=== PATIENT | female | born 1990 | race African-American/Black ===

== ENCOUNTER 2020-08-17 13:07 | Inpatient (IN) | payer BC ==
[2020-08-17] MEDS ORDERED: LACTATED RINGERS 500 ML IV ONE (13:32)
[2020-08-17] MEDS ORDERED: TERBUTALINE 1 MG/1 ML INJ SUB-Q SCH (14:00)
[2020-08-17] MEDS ORDERED: metroNIDAZOLE 500 MG TAB PO ONE (14:32)
--- NOTE | 2020-08-17 14:52 | History and Physical Report ---
History of Present Illness Date of examination: 08/17/20 Chief complaint: vaginal spotting and discharge, contractions History of present illness: 30yo G1 at 28.0 weeks, IGOR 11/09/20, with vaginal bleeding and contractions. Noted to be 3cm dilated in OB triage. PNC at [facility] scanned into chart. OB US completed in triage, no placental pathology, cervical length 4cm, awaiting final report labs significant for 1 hour [id number] Past History - Obstetrical History Expected Date of Delivery: 11/09/20 Actual Gestation: 28 Week(s) 0 Day(s) : 1 Medications and Allergies Allergies Allergy/AdvReac Type Severity Reaction Status Date / Time No Known Allergies Allergy Verified 08/17/20 13:17 Active Meds: Active Medications Lactated Ringer's (Lactated Ringers) 1,000 mls @ 125 mls/hr IV DIRECT TRESSA Terbutaline Sulfate (Terbutaline 1 Mg/1 Ml Inj) 0.25 mg SUB-Q Q20MIN TRESSA Stop: 08/19/20 14:01 Review of Systems All systems: negative (see HPI) - Vital Signs Vital signs: Vital Signs Pulse Pulse Ox 93 H 99 08/17/20 13:24 08/17/20 13:24 Temp Pulse Resp BP Pulse Ox 98.2 F 83 113/65 99 08/17/20 13:47 08/17/20 14:47 08/17/20 13:25 08/17/20 14:47 - Physical Exam Breasts: Positive: deferred Cardiovascular: Regular rate Lungs: Positive: Clear to auscultation Abdomen: Positive: normal appearance, normal bowel sounds Genitourinary (Female): Positive: normal external genitalia, normal perenium Cervix: Positive: other (3cm) Uterus: Positive: other (FH 28cm) Anus/Rectum: Positive: normal perianal skin Extremities: Positive: normal Deep Tendon Reflex Grade: Normal +2 - Obstetrical FHR: category 1 (appropriate and reassuring for gestatonal age) Uterine Contraction Monitor Mode: External Cervical Dilatation: 3 Results Result Diagrams: 08/17/20 Unknown All other labs normal. Assessment and Plan Labor Gestational DM Plan: admission MGSO4 Steroids Accuchecks fasting and QAC/HS SSI if needed diabetic diet CFM Bedrest delivery for maternal/ indication Eusebio Porter MD
[2020-08-17 15:06] LABS: Bacteria,Urine 1+ /HPF (Negative); Basophils % (Auto) 0.2 % (0.0-1.8); Bilirubin,Urine NEG (Negative); Blood,Urine NEG (Negative); Color,Urine Straw (Yellow); Eosinophils # (Auto) 0.1 K/mm3 (0.0-0.4); Eosinophils % (Auto) 0.8 % (0.0-4.3); Hematocrit 38.7 % (30.3-42.9); Hemoglobin 13.1 gm/dl (10.1-14.3); Lymphocytes # (Auto) 2.5 K/mm3 (1.2-5.4); Lymphocytes % (Auto) 15.7 % (13.4-35.0); Mean Corpuscular HGB Conc 34 % (30-34); Mean Corpuscular Volume 82 fl (79-97); Monocytes % (Auto) 6.1 % (0.0-7.3); Platelet Count 306 K/mm3 (140-440); Protein,Urine <15 mg/dL mg/dL (Negative); RBC,Urine < 1.0 /HPF (0.0-6.0); Red Blood Count 4.74 M/mm3 (3.65-5.03); Red Cell Distribution Width 14.8 % (13.2-15.2); Urobilinogen,Urine < 2.0 mg/dL (<2.0); WBC,Urine < 1.0 /HPF (0.0-6.0)
[2020-08-17] MEDS ORDERED: MAGNESIUM SULFATE 4 GM/100 ML BAG IV ONE (15:56)
[2020-08-17] MEDS ORDERED: LACTATED RINGERS 1,000 ML IV SCH (16:00)
--- NOTE | 2020-08-17 16:12 | Consultation ---
History of Present Illness Consult date: 08/17/20 Requesting physician: MINO NICOLE History of present illness: HPI Ms. Mims is a 30 y/o female from [place] - IGOR 11/09/20 - EGA at 28 0/7 weeks Presented with vag bleeding and contractions " tightenings" Bleeding started 2 days ago and increased today Now feeling better Denies complications Recent Screen for GDM Positive Vag exam 3cm / 50% US vtx Grade 1 placenta Anterior verbal from nurse - EFW/BPP pending No med ds, surg, STD, C/D/D NKA PNV's Lab H/H Plts - 306 WBC - 15.9 Afeb VSS 119/66 , pulse 89 ABd soft NT no rebound no guarding Back no CVA Ext nt no edema Past History - Obstetrical History : 1 Medications and Allergies Allergies Allergy/AdvReac Type Severity Reaction Status Date / Time No Known Allergies Allergy Verified 08/17/20 13:17 Active Meds: Active Medications Betamethasone Acet/Betameth SodPhos (Betamet Acet/Betamet Na Ph 6 Mg/Ml Inj 5 Ml Mdv) 12 mg IM Q24H TRESSA Stop: 08/18/20 16:01 Last Admin: 08/17/20 15:32 Dose: 12 mg Documented by: Lactated Ringer's (Lactated Ringers) 1,000 mls @ 125 mls/hr IV DIRECT TRESSA Lactated Ringer's (Lactated Ringers) 1,000 mls @ 125 mls/hr IV DIRECT TRESSA Magnesium Sulfate (Magnesium Sulfate 40gm/1000ml) 40 gm in 1,000 mls @ 50 mls/hr IV DIRECT TRESSA Magnesium Sulfate (Magnesium Sulfate 4gm/100ml) 4 gm in 100 mls @ 300 mls/hr IV ONCE ONE Stop: 08/17/20 16:15 Last Admin: 08/17/20 15:35 Dose: 300 mls/hr Documented by: Ampicillin Sodium (Ampicillin/Ns 2 Gm/100 Ml) 2 gm in 100 mls @ 100 mls/hr IV ONCE ONE; Protocol Stop: 08/17/20 17:37 Ampicillin Sodium (Ampicillin/Ns 1 Gm/50 Ml) 1 gm in 50 mls @ 100 mls/hr IV Q4H TRESSA; Protocol Insulin Human Regular (Insulin Regular, Human 100 Units/1 Ml) 0 units SUB-Q ACHS TRESSA; Protocol Terbutaline Sulfate (Terbutaline 1 Mg/1 Ml Inj) 0.25 mg SUB-Q Q20MIN TRESSA Stop: 08/19/20 14:01 - Vital Signs Vital signs: Vital Signs Pulse Pulse Ox 93 H 99 08/17/20 13:24 08/17/20 13:24 Temp Pulse Resp BP Pulse Ox 98.2 F 98 H 20 119/66 100 08/17/20 15:52 08/17/20 16:10 08/17/20 15:52 08/17/20 16:10 08/17/20 15:52 Results Result Diagrams: 08/17/20 Unknown Abnormal lab results 08/17/20 Range/Units Unknown WBC 15.9 H (4.5-11.0) K/mm3 Norman # (Auto) 1.0 H (0.0-0.8) K/mm3 Seg Neutrophils % 77.2 H (40.0-70.0) % Seg Neutrophils # 12.3 H (1.8-7.7) K/mm3 All other labs normal. Assessment and Plan Assess 1. [place] IUP at 28 0/7 weeks 2. PTL 3. Vag bleeding 4. GDM - recent diag Recs: 1. Steroids for FLM 2. Obtain Cx's GC Chl GBS if not done 3. Mg X 24 Hour for neuroprophylaxis 4. Hydration 5. US for EFW and BPP 6. NICU consult 7. Drug screen and HbA1c 8. ADA diet 2200 9. Accuchecks fastings and 2 hour PP's 10. If no further changes in cervix - and labs and status ( US EFW EFM BPP ) normal possible will assess hospital management verse home
[2020-08-17] MEDS: MAGNESIUM SULFATE 40GM/1000ML 40 GM/1,000 ML BAG IV SCH (16:13)
[2020-08-17] MEDS: BETAMET ACET/BETAMET NA PH 6 MG/ML INJ 5 ML MDV IM SCH (16:32)
[2020-08-17] MEDS ORDERED: AMPICILLIN/NS 2 GM/100 ML 2 GM/100 ML BAG IV ONE (16:38)
[2020-08-17 18:02] LABS: Amphetamine Screen,Urine Negative; Benzodiazepines Screen,Urine Negative; Cannabinoid Screen,Urine Negative; Cocaine Screen,Urine Negative; Methadone Screen,Urine Negative; Opiate Screen,Urine Negative
--- NOTE | 2020-08-17 19:04 | Ultrasound Report ---
ULTRASOUND OBSTETRIC LIMITED ULTRASOUND BIOPHYSICAL PROFILE INDICATION / CLINICAL INFORMATION: labor. COMPARISON: None available. FINDINGS: BREATHING MOVEMENT = 2 GROSS BODY MOVEMENT = 2 TONE = 2 QUALITATIVE AMNIOTIC FLUID VOLUME = 2 TOTAL BIOPHYSICAL SCORE = 8/8 AMNIOTIC FLUID INDEX (cm) = 13.0 PRESENTATION: Breech. HEART RATE (beats per minute): 164 ADDITIONAL FINDINGS: By ultrasound measurements, the estimated gestational age is 29 weeks 1 day. IMPRESSION: 1. Biophysical Score = 8/8 2. No significant sonographic abnormality. Signer Name: Refugio Bynum MD Signed: 08/17/2020 7:00 PM Workstation Name: [email or web address]
--- NOTE | 2020-08-17 20:01 | Consultation ---
Consult Note - Parent Education I met with parent(s) and discussed the following:: Need for NICU admission, Poss ible need for intubation and surfactant or other resp support, Temperature regulation, Head ultrasounds to evaluate IVH, Eye exams for ROP screening, Possible need for IV fluids/TPN and IV antibiotics, Possible need for umbilical lines, Importance of providing breast milk & encouraged pumping aft delivery, Donor breast milk if baby meets criteria after , Slow feeding advancement and monitoring of tolerance. NG/OG feeds, Need to monitor for jaundice, Data for survival & survival without significant co-morbidities Parent(s) demonstrated understanding of all the information:: Yes Assessment and Plan - Assessment Gestation:: 28 Baby's gender: Male Additional Comment: Ms. Mims is a 30 yo G1 who was admitted at 28 weeks gestation w/IGOR of 11/09/2020 for uterine contractions with vaginal bleeding that worsened today. On her admission, she was 3 cm dilated. Her 1 hour GTT showed a glucose of 244mg/dl and her HgbA1C is 6.4% on her admission today. Her PNR noted an episode of tachycardia with her dating US. Her serologies are negative. Her ultrasound on admission here showed the fetus is in the breech position. She has been started on betamethasone, magnesium sulfate, ampicillin, and flagyl. - Plan Plan: Agree with Mag & steroids Will attend delivery Please call NICU with questions
[2020-08-17] MEDS: INSULIN REGULAR, HUMAN 100 UNITS/1 ML SUB-Q SCH (20:21)
[2020-08-17] MEDS: AMPICILLIN/NS 1 GM/50 ML 1 GM/50 ML BAG IV SCH (21:30)
[2020-08-18] MEDS: AMPICILLIN/NS 1 GM/50 ML 1 GM/50 ML BAG IV SCH ×2 (01:45→05:56)
[2020-08-18] MEDS: LACTATED RINGERS 1,000 ML IV SCH ×2 (01:46→15:32)
[2020-08-18] MEDS: INSULIN REGULAR, HUMAN 100 UNITS/1 ML SUB-Q SCH ×5 (01:47→21:21)
--- NOTE | 2020-08-18 10:20 | Progress Note ---
Assessment and Plan Labor GDM Plan: Appreciate APA consult complete steroids monitor overnight and re-evaluate in AM if stable may d/c to home tomorrow Eusebio Porter MD Subjective - Subjective Date of service: 08/18/20 Interval history: 30yo G1 at 28.1 weeks, IGOR 11/09/20, with labor. SP Celestonex1: second dose scheduled for 3:30pm On magnesium sulfate No complaints at bedside, GFM, no LOF, no VB, no painor CTX Patient reports: new complaints, movement normal Objective - Vital Signs Vital Signs: Vital Signs - 12hr 08/17/20 08/17/20 08/17/20 22:21 22:26 22:31 Temperature Pulse Rate 90 90 89 Respiratory Rate Blood Pressure Blood Pressure [Right] O2 Sat by Pulse 99 98 99 Oximetry 08/17/20 08/17/20 08/17/20 22:36 22:41 22:46 Temperature Pulse Rate 98 H 100 H 94 H Respiratory Rate Blood Pressure Blood Pressure [Right] O2 Sat by Pulse 100 99 98 Oximetry 08/17/20 08/17/20 08/17/20 22:51 22:56 23:01 Temperature Pulse Rate 93 H 97 H 99 H Respiratory Rate Blood Pressure Blood Pressure [Right] O2 Sat by Pulse 98 97 97 Oximetry 08/17/20 08/17/20 08/17/20 23:06 23:11 23:16 Temperature Pulse Rate 98 H 91 H 88 Respiratory Rate Blood Pressure Blood Pressure [Right] O2 Sat by Pulse 96 96 96 Oximetry 08/17/20 08/17/20 08/17/20 23:21 23:26 23:31 Temperature Pulse Rate 91 H 96 H 94 H Respiratory Rate Blood Pressure Blood Pressure [Right] O2 Sat by Pulse 96 96 97 Oximetry 08/17/20 08/17/20 08/17/20 23:36 23:41 23:46 Temperature Pulse Rate 87 83 95 H Respiratory Rate Blood Pressure Blood Pressure [Right] O2 Sat by Pulse 97 97 99 Oximetry 08/17/20 08/17/20 08/18/20 23:51 23:56 00:00 Temperature 97.8 F Pulse Rate 84 81 92 H Respiratory 18 Rate Blood Pressure Blood Pressure 106/66 [Right] O2 Sat by Pulse 98 99 97 Oximetry 08/18/20 08/18/20 08/18/20 00:01 00:06 00:11 Temperature Pulse Rate 82 92 H 84 Respiratory Rate Blood Pressure Blood Pressure [Right] O2 Sat by Pulse 98 98 99 Oximetry 08/18/20 08/18/20 08/18/20 00:16 00:21 00:26 Temperature Pulse Rate 97 H 93 H 92 H Respiratory Rate Blood Pressure Blood Pressure [Right] O2 Sat by Pulse 97 99 99 Oximetry 08/18/20 08/18/20 08/18/20 00:31 00:36 00:41 Temperature Pulse Rate 90 91 H 91 H Respiratory Rate Blood Pressure Blood Pressure [Right] O2 Sat by Pulse 98 97 97 Oximetry 08/18/20 08/18/20 08/18/20 00:46 00:51 00:56 Temperature Pulse Rate 94 H 94 H 97 H Respiratory Rate Blood Pressure Blood Pressure [Right] O2 Sat by Pulse 98 97 98 Oximetry 08/18/20 08/18/20 08/18/20 01:01 01:06 01:11 Temperature Pulse Rate 92 H 91 H 91 H Respiratory Rate Blood Pressure Blood Pressure [Right] O2 Sat by Pulse 97 97 98 Oximetry 08/18/20 08/18/20 08/18/20 01:16 01:21 01:26 Temperature Pulse Rate 87 85 84 Respiratory Rate Blood Pressure Blood Pressure [Right] O2 Sat by Pulse 98 97 97 Oximetry 08/18/20 08/18/20 08/18/20 01:31 01:36 01:41 Temperature Pulse Rate 80 85 82 Respiratory Rate Blood Pressure Blood Pressure [Right] O2 Sat by Pulse 97 96 98 Oximetry 08/18/20 08/18/20 08/18/20 01:46 01:51 01:56 Temperature Pulse Rate 81 90 88 Respiratory Rate Blood Pressure Blood Pressure [Right] O2 Sat by Pulse 98 97 98 Oximetry 08/18/20 08/18/20 08/18/20 02:01 02:06 02:11 Temperature Pulse Rate 80 85 79 Respiratory Rate Blood Pressure Blood Pressure [Right] O2 Sat by Pulse 98 97 98 Oximetry 08/18/20 08/18/20 08/18/20 02:16 02:21 02:26 Temperature Pulse Rate 86 83 91 H Respiratory Rate Blood Pressure Blood Pressure [Right] O2 Sat by Pulse 97 97 99 Oximetry 08/18/20 08/18/20 08/18/20 02:31 02:36 02:41 Temperature Pulse Rate 86 87 88 Respiratory Rate Blood Pressure Blood Pressure [Right] O2 Sat by Pulse 98 97 97 Oximetry 08/18/20 08/18/20 08/18/20 02:46 02:51 02:56 Temperature Pulse Rate 84 84 86 Respiratory Rate Blood Pressure Blood Pressure [Right] O2 Sat by Pulse 97 97 97 Oximetry 08/18/20 08/18/20 08/18/20 03:01 03:06 03:11 Temperature Pulse Rate 84 84 85 Respiratory Rate Blood Pressure Blood Pressure [Right] O2 Sat by Pulse 97 97 96 Oximetry 08/18/20 08/18/20 08/18/20 03:16 03:21 03:26 Temperature Pulse Rate 83 80 83 Respiratory Rate Blood Pressure Blood Pressure [Right] O2 Sat by Pulse 97 97 97 Oximetry 08/18/20 08/18/20 08/18/20 03:31 03:36 03:41 Temperature Pulse Rate 85 78 91 H Respiratory Rate Blood Pressure Blood Pressure [Right] O2 Sat by Pulse 96 98 97 Oximetry 08/18/20 08/18/20 08/18/20 03:46 03:51 03:56 Temperature Pulse Rate 79 78 81 Respiratory Rate Blood Pressure Blood Pressure [Right] O2 Sat by Pulse 97 98 99 Oximetry 08/18/20 08/18/20 08/18/20 04:00 04:01 04:06 Temperature 97.8 F Pulse Rate 85 77 83 Respiratory 18 Rate Blood Pressure Blood Pressure 110/68 [Right] O2 Sat by Pulse 96 98 98 Oximetry 08/18/20 08/18/20 08/18/20 04:11 04:16 04:21 Temperature Pulse Rate 80 79 75 Respiratory Rate Blood Pressure Blood Pressure [Right] O2 Sat by Pulse 98 98 98 Oximetry 08/18/20 08/18/20 08/18/20 04:26 04:31 04:36 Temperature Pulse Rate 78 76 81 Respiratory Rate Blood Pressure Blood Pressure [Right] O2 Sat by Pulse 98 98 98 Oximetry 08/18/20 08/18/20 08/18/20 04:41 04:46 04:51 Temperature Pulse Rate 76 73 72 Respiratory Rate Blood Pressure Blood Pressure [Right] O2 Sat by Pulse 97 98 97 Oximetry 08/18/20 08/18/20 08/18/20 04:56 05:01 05:06 Temperature Pulse Rate 75 74 75 Respiratory Rate Blood Pressure Blood Pressure [Right] O2 Sat by Pulse 98 98 97 Oximetry 08/18/20 08/18/20 08/18/20 05:11 05:16 05:21 Temperature Pulse Rate 76 76 74 Respiratory Rate Blood Pressure Blood Pressure [Right] O2 Sat by Pulse 96 97 97 Oximetry 08/18/20 08/18/20 08/18/20 05:26 05:31 05:36 Temperature Pulse Rate 76 88 88 Respiratory Rate Blood Pressure Blood Pressure [Right] O2 Sat by Pulse 96 95 95 Oximetry 08/18/20 08/18/20 08/18/20 05:41 05:46 05:51 Temperature Pulse Rate 74 80 73 Respiratory Rate Blood Pressure Blood Pressure [Right] O2 Sat by Pulse 96 96 97 Oximetry 08/18/20 08/18/20 08/18/20 05:56 06:00 06:01 Temperature Pulse Rate 98 H 85 87 Respiratory Rate Blood Pressure 114/66 Blood Pressure [Right] O2 Sat by Pulse 98 96 Oximetry 08/18/20 08/18/20 08/18/20 06:06 06:11 06:16 Temperature Pulse Rate 85 90 82 Respiratory Rate Blood Pressure Blood Pressure [Right] O2 Sat by Pulse 98 98 97 Oximetry 08/18/20 08/18/20 08/18/20 06:21 06:26 06:31 Temperature Pulse Rate 80 81 81 Respiratory Rate Blood Pressure Blood Pressure [Right] O2 Sat by Pulse 96 96 97 Oximetry 08/18/20 08/18/20 08/18/20 06:36 06:41 06:46 Temperature Pulse Rate 78 90 86 Respiratory Rate Blood Pressure Blood Pressure [Right] O2 Sat by Pulse 96 98 98 Oximetry 08/18/20 08/18/20 08/18/20 06:51 06:56 07:00 Temperature Pulse Rate 80 75 75 Respiratory Rate Blood Pressure 96/52 Blood Pressure [Right] O2 Sat by Pulse 98 98 Oximetry 08/18/20 08/18/20 08/18/20 07:01 07:06 07:11 Temperature Pulse Rate 79 83 75 Respiratory Rate Blood Pressure Blood Pressure [Right] O2 Sat by Pulse 99 99 98 Oximetry 08/18/20 08/18/20 08/18/20 07:16 07:21 07:26 Temperature Pulse Rate 77 84 87 Respiratory Rate Blood Pressure Blood Pressure [Right] O2 Sat by Pulse 99 99 98 Oximetry 08/18/20 08/18/20 08/18/20 07:31 07:36 07:41 Temperature Pulse Rate 77 90 81 Respiratory Rate Blood Pressure Blood Pressure [Right] O2 Sat by Pulse 97 98 98 Oximetry 08/18/20 08/18/20 08/18/20 07:46 07:51 07:56 Temperature Pulse Rate 88 84 86 Respiratory Rate Blood Pressure Blood Pressure [Right] O2 Sat by Pulse 97 97 97 Oximetry 08/18/20 08/18/20 08/18/20 08:00 08:01 08:06 Temperature Pulse Rate 83 87 87 Respiratory Rate Blood Pressure 113/63 Blood Pressure [Right] O2 Sat by Pulse 97 97 Oximetry 08/18/20 08/18/20 08/18/20 08:11 08:16 08:21 Temperature Pulse Rate 88 86 86 Respiratory Rate Blood Pressure Blood Pressure [Right] O2 Sat by Pulse 97 97 96 Oximetry 08/18/20 08/18/20 08/18/20 08:26 08:31 08:36 Temperature Pulse Rate 92 H 90 83 Respiratory Rate Blood Pressure Blood Pressure [Right] O2 Sat by Pulse 97 98 98 Oximetry 08/18/20 08/18/20 08/18/20 08:41 08:46 08:51 Temperature Pulse Rate 94 H 77 90 Respiratory Rate Blood Pressure Blood Pressure [Right] O2 Sat by Pulse 98 98 96 Oximetry 08/18/20 08/18/20 08/18/20 08:56 09:00 09:01 Temperature Pulse Rate 89 86 86 Respiratory Rate Blood Pressure 108/65 Blood Pressure [Right] O2 Sat by Pulse 97 98 Oximetry 08/18/20 08/18/20 08/18/20 09:06 09:11 09:16 Temperature Pulse Rate 88 89 92 H Respiratory Rate Blood Pressure Blood Pressure [Right] O2 Sat by Pulse 99 99 98 Oximetry 08/18/20 08/18/20 08/18/20 09:21 09:26 09:31 Temperature Pulse Rate 94 H 89 87 Respiratory Rate Blood Pressure Blood Pressure [Right] O2 Sat by Pulse 98 98 98 Oximetry 08/18/20 08/18/20 08/18/20 09:36 09:41 09:46 Temperature Pulse Rate 87 86 85 Respiratory Rate Blood Pressure Blood Pressure [Right] O2 Sat by Pulse 98 97 99 Oximetry 08/18/20 08/18/20 08/18/20 09:51 09:56 10:00 Temperature Pulse Rate 79 82 75 Respiratory Rate Blood Pressure 96/53 Blood Pressure [Right] O2 Sat by Pulse 99 100 Oximetry 08/18/20 08/18/20 08/18/20 10:01 10:06 10:11 Temperature Pulse Rate 78 89 84 Respiratory Rate Blood Pressure Blood Pressure [Right] O2 Sat by Pulse 99 98 99 Oximetry - Exam Cardiovascular: Regular rate Abdomen: Present: normal appearance, normal bowel sounds FHR: category 1 - Labs Labs: Abnormal Labs 08/17/20 08/17/20 08/17/20 15:05 20:03 Unknown WBC 15.9 H [place] # (Auto) 1.0 H Seg Neutrophils % 77.2 H Seg Neutrophils # 12.3 H Hemoglobin A1c 6.4 H Magnesium 4.40 H 08/18/20 08/18/20 01:42 08:01 WBC [place] # (Auto) Seg Neutrophils % Seg Neutrophils # Hemoglobin A1c Magnesium 5.10 H 6.10 H Laboratory Results - last 24 hr 08/17/20 08/17/20 08/17/20 14:30 15:05 20:03 WBC RBC Hgb Hct MCV MCH MCHC RDW Plt Count Lymph % (Auto) [place] % (Auto) Eos % (Auto) Baso % (Auto) Lymph # (Auto) [place] # (Auto) Eos # (Auto) Baso # (Auto) Seg Neutrophils % Seg Neutrophils # Hemoglobin A1c 6.4 H Magnesium 4.40 H Urine Color Urine Turbidity Urine pH Ur Specific Krypton Urine Protein Urine Glucose (UA) Urine Ketones Urine Blood Urine Nitrite Urine Bilirubin Urine Urobilinogen Ur Leukocyte Esterase Urine WBC (Auto) Urine RBC (Auto) U Epithel Cells (Auto) Urine Bacteria (Auto) Urine Opiates Screen Urine Methadone Screen Ur Barbiturates Screen Ur Phencyclidine Scrn Ur Amphetamines Screen U Benzodiazepines Scrn Urine Cocaine Screen U Marijuana (THC) Screen Drugs of Abuse Note Blood Type O POSITIVE Antibody Screen Negative 08/17/20 08/17/20 08/17/20 Unknown Unknown Unknown WBC 15.9 H RBC 4.74 Hgb 13.1 Hct 38.7 MCV 82 MCH 28 MCHC 34 RDW 14.8 Plt Count 306 Lymph % (Auto) 15.7 [place] % (Auto) 6.1 Eos % (Auto) 0.8 Baso % (Auto) 0.2 Lymph # (Auto) 2.5 [place] # (Auto) 1.0 H Eos # (Auto) 0.1 Baso # (Auto) 0.0 Seg Neutrophils % 77.2 H Seg Neutrophils # 12.3 H Hemoglobin A1c Magnesium Urine Color Straw Urine Turbidity Clear Urine pH 6.0 Ur Specific Krypton 1.006 Urine Protein <15 mg/dl Urine Glucose (UA) >=500 Urine Ketones Neg Urine Blood Neg Urine Nitrite Neg Urine Bilirubin Neg Urine Urobilinogen < 2.0 Ur Leukocyte Esterase Neg Urine WBC (Auto) < 1.0 Urine RBC (Auto) < 1.0 U Epithel Cells (Auto) < 1.0 Urine Bacteria (Auto) 1+ Urine Opiates Screen Negative Urine Methadone Screen Negative Ur Barbiturates Screen Negative Ur Phencyclidine Scrn Negative Ur Amphetamines Screen Negative U Benzodiazepines Scrn Negative Urine Cocaine Screen Negative U Marijuana (THC) Screen Negative Drugs of Abuse Note Disclamer Blood Type Antibody Screen 08/18/20 08/18/20 01:42 08:01 WBC RBC Hgb Hct MCV MCH MCHC RDW Plt Count Lymph % (Auto) [place] % (Auto) Eos % (Auto) Baso % (Auto) Lymph # (Auto) [place] # (Auto) Eos # (Auto) Baso # (Auto) Seg Neutrophils % Seg Neutrophils # Hemoglobin A1c Magnesium 5.10 H 6.10 H Urine Color Urine Turbidity Urine pH Ur Specific Krypton Urine Protein Urine Glucose (UA) Urine Ketones Urine Blood Urine Nitrite Urine Bilirubin Urine Urobilinogen Ur Leukocyte Esterase Urine WBC (Auto) Urine RBC (Auto) U Epithel Cells (Auto) Urine Bacteria (Auto) Urine Opiates Screen Urine Methadone Screen Ur Barbiturates Screen Ur Phencyclidine Scrn Ur Amphetamines Screen U Benzodiazepines Scrn Urine Cocaine Screen U Marijuana (THC) Screen Drugs of Abuse Note Blood Type Antibody Screen
[2020-08-18] MEDS: MAGNESIUM SULFATE 40GM/1000ML 40 GM/1,000 ML BAG IV SCH (10:38)
--- NOTE | 2020-08-18 13:40 | Ultrasound Report ---
ULTRASOUND OBSTETRIC LIMITED INDICATION / CLINICAL INFORMATION: ptl. 30-year-old female with concern for labor Clinical Gestational Age (GA): 28.0 weeks.days COMPARISON: OB ultrasound 08/17/2020 FINDINGS: HEART RATE (beats per minute): 164, as provided from the prior biophysical profile from same da te. AMNIOTIC FLUID INDEX (cm) = 9.6 (normal = 7-24 cm) PRESENTATION: Breech. ADDITIONAL FINDINGS: Biophysical profile is normal on this examination, see report from 08/17/2020 OB examination for further details. Also information from that report states that the estimated we ight is 3 pounds and 1 ounce. Ultrasound age is estimated at weeks and 0 days by abdominal circumfere nce (25.8 cm). IMPRESSION: 1. No significant abnormality. Consider further evaluation, as warranted. Signer Name: Paul Larose MD Signed: 08/18/2020 1:35 PM Workstation Name: [id number]
--- NOTE | 2020-08-18 15:21 | Ultrasound Report ---
ULTRASOUND OBSTETRIC LIMITED INDICATION / CLINICAL INFORMATION: PLACENTA LOCATION. Clinical Gestational Age (GA): 28.0 weeks.days COMPARISON: OB ultrasound 08/17/2020 FINDINGS: HEART RATE (beats per minute): 159 AMNIOTIC FLUID INDEX (cm) = Not evaluated. PRESENTATION: Cephalic. ADDITIONAL FINDINGS: Grade 1 placenta which is anterior/left lateral in location. Free of the os. Cer vix appears open with cervical with up to 3.5 cm. IMPRESSION: 1. Grade 1 placenta which is anterior/left lateral in location and appears free of the cervical os. 2. The cervix appears open with cervical width of 3.5 cm, cephalic presentation with vertex at the ce rvical opening. Recommend clinical correlation and further evaluation, as warranted. Signer Name: Paul Larose MD Signed: 08/18/2020 3:17 PM Workstation Name: [id number]
[2020-08-18] MEDS: BETAMET ACET/BETAMET NA PH 6 MG/ML INJ 5 ML MDV IM SCH (16:32)
--- NOTE | 2020-08-18 21:37 | Ultrasound Report ---
ULTRASOUND OBSTETRIC LIMITED INDICATION / CLINICAL INFORMATION: placenta, DES, position, cervical length. Clinical Gestational Age (GA) in weeks, days: TECHNIQUE: Transabdominal. COMPARISON: 08/17/2020 ultrasound FINDINGS: HEART RATE (beats per minute): 155 AMNIOTIC FLUID INDEX (cm) = 14.3 (normal = 7-24 cm) PRESENTATION: Breech. ADDITIONAL FINDINGS: There is redemonstration of U-shaped funneling of the cervical os. The cervical os measures up to 3.2 cm, which is unchanged from prior study. Cervical length is difficult to evalua te, though measures approximately 5.3 cm. Fundal grade 1 placenta is free of the os. No evidence of p lacental abruption. IMPRESSION: 1. Redemonstration of U-shaped cervical funneling. The cervical os measures 3.2, unchanged from prior study. Cervical length is difficult to evaluate though measures approximately 5.3 cm. 2. Fundal placenta is free of the os. 3. position now appears breech. Signer Name: Weston Nevarez MD Signed: 08/18/2020 9:32 PM Workstation Name: [id number]
[2020-08-19] MEDS: LACTATED RINGERS 1,000 ML IV SCH (03:38)
[2020-08-19] MEDS: INSULIN REGULAR, HUMAN 100 UNITS/1 ML SUB-Q SCH (06:18)
[2020-08-19] MEDS ORDERED: glyBURIDE 2.5 MG TAB PO SCH (08:00)
[2020-08-19 09:10] VITALS: BP 113/73
--- NOTE | 2020-08-19 09:56 | Progress Note ---
Subjective - Subjective Date of service: 08/19/20 Interval history: 30yo G1 at 28.2 weeks, IGOR 11/09/20, with labor. SP Celestonex2: stable overnight off magnesium sulafate meets d/c criteria per [facility] PTL precautions Eusebio Porter MD Patient reports: new complaints, movement normal Objective - Vital Signs Vital Signs: Vital Signs - 12hr 08/18/20 08/18/20 08/18/20 21:32 21:37 21:42 Temperature Pulse Rate 102 H 89 91 H Respiratory Rate Blood Pressure Blood Pressure [Right] O2 Sat by Pulse 97 98 99 Oximetry 08/18/20 08/18/20 08/18/20 21:47 21:52 21:57 Temperature Pulse Rate 90 92 H 89 Respiratory Rate Blood Pressure Blood Pressure [Right] O2 Sat by Pulse 97 98 97 Oximetry 08/18/20 08/18/20 08/18/20 22:02 22:07 22:12 Temperature Pulse Rate 89 97 H 86 Respiratory Rate Blood Pressure Blood Pressure [Right] O2 Sat by Pulse 97 98 98 Oximetry 08/18/20 08/18/20 08/18/20 22:22 22:27 22:32 Temperature Pulse Rate 99 H 86 90 Respiratory Rate Blood Pressure Blood Pressure [Right] O2 Sat by Pulse 98 97 99 Oximetry 08/18/20 08/18/20 08/18/20 22:37 22:42 22:47 Temperature Pulse Rate 99 H 92 H 87 Respiratory Rate Blood Pressure Blood Pressure [Right] O2 Sat by Pulse 98 96 97 Oximetry 08/18/20 08/18/20 08/18/20 22:52 22:57 23:00 Temperature Pulse Rate 86 84 86 Respiratory Rate Blood Pressure 93/57 Blood Pressure [Right] O2 Sat by Pulse 97 96 Oximetry 08/18/20 08/18/20 08/18/20 23:02 23:07 23:12 Temperature Pulse Rate 88 87 83 Respiratory Rate Blood Pressure Blood Pressure [Right] O2 Sat by Pulse 96 96 96 Oximetry 08/18/20 08/18/20 08/18/20 23:17 23:22 23:27 Temperature Pulse Rate 86 87 85 Respiratory Rate Blood Pressure Blood Pressure [Right] O2 Sat by Pulse 96 96 96 Oximetry 08/18/20 08/18/20 08/18/20 23:32 23:37 23:42 Temperature Pulse Rate 85 87 85 Respiratory Rate Blood Pressure Blood Pressure [Right] O2 Sat by Pulse 96 95 96 Oximetry 08/18/20 08/18/20 08/18/20 23:47 23:51 23:52 Temperature Pulse Rate 85 92 H 89 Respiratory Rate Blood Pressure Blood Pressure [Right] O2 Sat by Pulse 96 87 97 Oximetry 08/18/20 08/19/20 08/19/20 23:57 00:00 00:02 Temperature Pulse Rate 87 86 89 Respiratory Rate Blood Pressure 94/58 Blood Pressure [Right] O2 Sat by Pulse 97 97 Oximetry 08/19/20 08/19/20 08/19/20 00:07 00:12 00:17 Temperature Pulse Rate 104 H 82 75 Respiratory Rate Blood Pressure Blood Pressure [Right] O2 Sat by Pulse 97 97 96 Oximetry 08/19/20 08/19/20 08/19/20 00:22 00:27 00:29 Temperature Pulse Rate 72 73 74 Respiratory Rate Blood Pressure 98/52 Blood Pressure [Right] O2 Sat by Pulse 97 97 Oximetry 08/19/20 08/19/20 08/19/20 00:32 00:37 00:42 Temperature 98.3 F Pulse Rate 74 74 79 Respiratory 15 Rate Blood Pressure Blood Pressure [Right] O2 Sat by Pulse 97 97 97 Oximetry 08/19/20 08/19/20 08/19/20 00:47 00:52 00:57 Temperature Pulse Rate 80 79 80 Respiratory Rate Blood Pressure Blood Pressure [Right] O2 Sat by Pulse 96 96 96 Oximetry 08/19/20 08/19/20 08/19/20 01:00 01:02 01:07 Temperature Pulse Rate 77 81 89 Respiratory Rate Blood Pressure 96/53 Blood Pressure [Right] O2 Sat by Pulse 94 98 Oximetry 08/19/20 08/19/20 08/19/20 01:12 01:17 01:22 Temperature Pulse Rate 87 74 72 Respiratory Rate Blood Pressure Blood Pressure [Right] O2 Sat by Pulse 97 97 98 Oximetry 08/19/20 08/19/20 08/19/20 01:27 01:32 01:37 Temperature Pulse Rate 76 72 73 Respiratory Rate Blood Pressure Blood Pressure [Right] O2 Sat by Pulse 97 97 98 Oximetry 08/19/20 08/19/20 08/19/20 01:42 01:47 01:52 Temperature Pulse Rate 77 73 75 Respiratory Rate Blood Pressure Blood Pressure [Right] O2 Sat by Pulse 98 98 96 Oximetry 08/19/20 08/19/20 08/19/20 01:57 03:00 03:02 Temperature Pulse Rate 82 79 73 Respiratory Rate Blood Pressure 97/52 Blood Pressure [Right] O2 Sat by Pulse 97 96 Oximetry 08/19/20 08/19/20 08/19/20 03:07 03:12 03:17 Temperature Pulse Rate 73 73 75 Respiratory Rate Blood Pressure Blood Pressure [Right] O2 Sat by Pulse 98 97 97 Oximetry 08/19/20 08/19/20 08/19/20 03:22 03:27 03:33 Temperature Pulse Rate 75 81 81 Respiratory Rate Blood Pressure Blood Pressure [Right] O2 Sat by Pulse 96 96 98 Oximetry 08/19/20 08/19/20 08/19/20 03:37 03:38 03:40 Temperature 98.3 F Pulse Rate 81 91 H 77 Respiratory 18 Rate Blood Pressure 93/51 Blood Pressure 93/51 [Right] O2 Sat by Pulse 98 98 Oximetry 08/19/20 08/19/20 08/19/20 04:03 04:07 04:12 Temperature Pulse Rate 79 91 H 82 Respiratory Rate Blood Pressure Blood Pressure [Right] O2 Sat by Pulse 98 98 98 Oximetry 08/19/20 08/19/20 08/19/20 04:17 04:22 04:27 Temperature Pulse Rate 82 79 73 Respiratory Rate Blood Pressure Blood Pressure [Right] O2 Sat by Pulse 99 98 99 Oximetry 08/19/20 08/19/20 08/19/20 04:32 04:37 04:42 Temperature Pulse Rate 78 76 75 Respiratory Rate Blood Pressure Blood Pressure [Right] O2 Sat by Pulse 99 98 100 Oximetry 08/19/20 08/19/20 08/19/20 04:47 04:53 04:57 Temperature Pulse Rate 83 81 75 Respiratory Rate Blood Pressure Blood Pressure [Right] O2 Sat by Pulse 98 97 99 Oximetry 08/19/20 08/19/20 08/19/20 05:00 05:03 05:07 Temperature Pulse Rate 73 76 85 Respiratory Rate Blood Pressure 97/54 Blood Pressure [Right] O2 Sat by Pulse 99 97 Oximetry 08/19/20 08/19/20 08/19/20 05:12 05:17 05:23 Temperature Pulse Rate 73 75 83 Respiratory Rate Blood Pressure Blood Pressure [Right] O2 Sat by Pulse 99 99 99 Oximetry 08/19/20 08/19/20 08/19/20 05:27 05:32 05:38 Temperature Pulse Rate 87 91 H 80 Respiratory Rate Blood Pressure Blood Pressure [Right] O2 Sat by Pulse 100 98 99 Oximetry 08/19/20 08/19/20 08/19/20 05:43 05:48 05:53 Temperature Pulse Rate 85 76 79 Respiratory Rate Blood Pressure Blood Pressure [Right] O2 Sat by Pulse 98 99 99 Oximetry 08/19/20 08/19/20 08/19/20 06:07 06:12 06:17 Temperature Pulse Rate 78 72 72 Respiratory Rate Blood Pressure Blood Pressure [Right] O2 Sat by Pulse 100 98 98 Oximetry 08/19/20 08/19/20 08/19/20 06:22 06:27 06:32 Temperature Pulse Rate 88 83 82 Respiratory Rate Blood Pressure Blood Pressure [Right] O2 Sat by Pulse 98 98 97 Oximetry 08/19/20 08/19/20 08/19/20 06:38 06:42 06:48 Temperature Pulse Rate 82 81 78 Respiratory Rate Blood Pressure Blood Pressure [Right] O2 Sat by Pulse 97 97 97 Oximetry 08/19/20 08/19/20 08/19/20 06:53 06:57 07:02 Temperature Pulse Rate 82 81 81 Respiratory Rate Blood Pressure 94/60 Blood Pressure [Right] O2 Sat by Pulse 97 97 96 Oximetry 08/19/20 08/19/20 08/19/20 07:07 07:12 07:17 Temperature Pulse Rate 82 81 80 Respiratory Rate Blood Pressure Blood Pressure [Right] O2 Sat by Pulse 97 97 98 Oximetry 08/19/20 08/19/20 08/19/20 07:23 07:27 07:32 Temperature Pulse Rate 80 73 72 Respiratory Rate Blood Pressure Blood Pressure [Right] O2 Sat by Pulse 97 96 97 Oximetry 08/19/20 08/19/20 08/19/20 07:36 07:37 07:42 Temperature Pulse Rate 80 81 75 Respiratory Rate Blood Pressure Blood Pressure [Right] O2 Sat by Pulse 87 89 97 Oximetry 08/19/20 08/19/20 08/19/20 07:47 07:53 07:58 Temperature Pulse Rate 72 78 79 Respiratory Rate Blood Pressure Blood Pressure [Right] O2 Sat by Pulse 99 98 98 Oximetry 0308/19/20 08/19/20 08:00 08:02 08:08 Temperature Pulse Rate 74 76 74 Respiratory 16 Rate Blood Pressure 101/55 Blood Pressure [Right] O2 Sat by Pulse 98 98 Oximetry 08/19/20 08/19/20 08/19/20 08:12 08:18 08:23 Temperature Pulse Rate 81 77 81 Respiratory Rate Blood Pressure Blood Pressure [Right] O2 Sat by Pulse 99 98 98 Oximetry 08/19/20 08/19/20 08/19/20 08:28 09:09 09:10 Temperature Pulse Rate 74 83 82 Respiratory Rate Blood Pressure 113/73 Blood Pressure [Right] O2 Sat by Pulse 99 99 Oximetry 08/19/20 08/19/20 08/19/20 09:14 09:19 09:25 Temperature Pulse Rate 91 H 84 84 Respiratory Rate Blood Pressure Blood Pressure [Right] O2 Sat by Pulse 93 99 99 Oximetry 08/19/20 09:30 Temperature Pulse Rate 84 Respiratory Rate Blood Pressure Blood Pressure [Right] O2 Sat by Pulse 99 Oximetry - Labs Labs: Abnormal Labs 08/17/20 08/17/20 08/17/20 15:05 20:03 Unknown WBC 15.9 H Jenkins # (Auto) 1.0 H Seg Neutrophils % 77.2 H Seg Neutrophils # 12.3 H POC Glucose Hemoglobin A1c 6.4 H Magnesium 4.40 H 08/18/20 08/18/20 08/18/20 01:42 06:12 08:01 WBC Jenkins # (Auto) Seg Neutrophils % Seg Neutrophils # POC Glucose 175 H Hemoglobin A1c Magnesium 5.10 H 6.10 H 08/18/20 08/18/20 08/18/20 10:55 14:20 15:07 WBC Jenkins # (Auto) Seg Neutrophils % Seg Neutrophils # POC Glucose 174 H 189 H Hemoglobin A1c Magnesium 5.70 H 08/18/20 08/18/20 08/19/20 19:42 21:00 06:10 WBC Jenkins # (Auto) Seg Neutrophils % Seg Neutrophils # POC Glucose 233 H 157 H Hemoglobin A1c Magnesium 3.40 H 08/19/20 08:12 WBC Jenkins # (Auto) Seg Neutrophils % Seg Neutrophils # POC Glucose 151 H Hemoglobin A1c Magnesium Laboratory Results - last 24 hr 08/17/20 08/18/20 08/18/20 Unknown 06:12 08:01 POC Glucose 175 H Magnesium 6.10 H Coronavirus (PCR) Negative 08/18/20 08/18/20 08/18/20 10:55 14:20 15:07 POC Glucose 174 H 189 H Magnesium 5.70 H Coronavirus (PCR) 08/18/20 08/18/20 08/19/20 19:42 21:00 06:10 POC Glucose 233 H 157 H Magnesium 3.40 H Coronavirus (PCR) 08/19/20 08:12 POC Glucose 151 H Magnesium Coronavirus (PCR)
--- NOTE | 2020-08-19 10:01 | Discharge Summary ---
Providers - Providers Date of Admission: 08/17/20 20:07 Date of discharge: 08/19/20 Attending physician: MINO NICOLE MD 08/17/20 18:23 Consult to Physician [CONS] Routine Comment: Consulting Provider: PATI WOLF Physician Instructions: Reason For Exam: PTL/3cm dilated Primary care physician: MINO NICOLE MD Hospitalization Reason for admission: labor complications: pelvic infection Hospital course: labor completed steroids no cervical change at discharge GDM will continue to monitor and may start oral medication as outpatient(expect elevated glucose while inpatient second to [facility]) Condition at discharge: Stable Disposition: DC- TO HOME OR SELFCARE Plan - Provider Discharge Summary Activity: other (pelvicrest) Diet: routine Additional instructions: [] Smoking cessation referral if applicable(refer to patient education folder for contact #) [] Refer to [facility] Booklet Call your doctor immediately for: * Fever > 100.5 * Heavy vaginal bleeding ( >1 pad per hour) * Severe persistent headache * Shortness of breath * Reddened, hot, painful area to leg or breast * Drainage or odor from incision. * Keep incision clean and dry at all times and follow doctor's instructions regarding bathing/showering - Follow up plan Follow up: MINO NICOLE MD [Primary Care Provider] - 7 Days (FOLLOW UP WITH [facility] IN 1 WEEK) Forms: Discharge Signature Page
== END 2020-08-19 10:40 | disposition home or self-care (01) | DRG 831 ==
LOC: APU 13:07 → TRG 13:07 → LD 15:00 → TRG 20:07
PROVIDERS: ADMIT Obstetrics & Gynecology; ATTEND Obstetrics & Gynecology
DX: O24.419 Gestational diabetes mellitus in pregnancy, unspecified control (principal); O60.03 Preterm labor without delivery, third trimester; Z3A.28 28 weeks gestation of pregnancy; Z20.822 Contact with and (suspected) exposure to COVID-19
CPT/HCPCS: 36415; 76815; 76816; 76819; 80307; 81001; 82962; 83036; 83735; 85025; 86850; 86900; 86901; 87086; 87116; 87591; G0378; J0290; J0702; J1815; J3475; J7120; U0003